=== PATIENT | female | born 1965 | race Caucasian/White ===

== ENCOUNTER 2022-05-01 08:56 | Day surgery (SDC) | payer BC ==
[~2022-05-01] VITALS: Ht 174 cm; Wt 113.9 kg
[~2022-05-01 08:56] MED LIST: CALCIUM 600600 MG PO; CIPRO 500MG TA500 MG PO; LIPITOR 10MG10 MG PO; LOPRESSOR100 MG PO; MASON NATURAL2000 IU PO; MULTI VITAMINS1 TAB PO; NORCO 325 MG-51 TAB PO; PERCOCET 325 MG1 TA3 PO
[2022-05-01 09:14] VITALS: BP 146/74; PULSE 60; TEMP 98.5
[2022-05-01] MEDS ORDERED: OMEGA-3 1000 MG1 CAP PO (09:20)
[2022-05-01] MEDS ORDERED: HYZAAR 25 MG-101 TAB PO (09:21)
[2022-05-01 11:05] VITALS: BP 107/60; PULSE 63; TEMP 98.2
--- NOTE | 2022-05-01 11:05 | NUR ---
PATIENT RETURNS TO ROOM 8 VIA CART. AT BEDSIDE. ASSIST TO CHAIR X 2. VITAL SIGNS WNL. SHE REQUESTS SPRITE TO DRINK AND NOTHING TO EAT. WILL CONTINUE TO MONITOR.
[2022-05-01 11:20] VITALS: BP 112/57; PULSE 60
--- NOTE | 2022-05-01 11:20 | NUR ---
PATIENT IS ALERT AND ORIENTED. DENIES ANY NAUSEA AFTER DRINKING SPRITE. VITAL SIGNS WNL, DOCTOR AT BEDSIDE. WILL CONTINUE TO MONITOR.
[2022-05-01 11:35] VITALS: BP 110/64; PULSE 61
--- NOTE | 2022-05-01 11:35 | NUR ---
PATIENT IS READY FOR DISCHARGE. DISCHARGE INSTRUCTIONS REVIEWED. LAST SET OF VITALS WNL. WILL DISCHARGE ONCE SHE IS DRESSED AND READY.
[2022-05-01 14:08] VITALS: BP 102/57; PULSE 64
== END 2022-05-01 11:44 | disposition home or self-care (01) ==
LOC: SDCO 08:56
DX: Z12.11 Encounter for screening for malignant neoplasm of colon (principal); D12.2 Benign neoplasm of ascending colon; D12.5 Benign neoplasm of sigmoid colon; K64.1 Second degree hemorrhoids; Z86.010 Personal history of colon polyps; K63.5 Polyp of colon
CPT/HCPCS: J2704; J7030